=== PATIENT | male | born 1970 | race Caucasian/White ===

== ENCOUNTER → 2020-10-23 | Outpatient (CLI) | payer BC ==
[~2020-10-23] MED LIST: AMOXICILLIN 8751 TAB PO; CARTIA XT240 MG PO; COREG 25MG25 MG/TAB PO; LOTENSIN20 MG PO; NEURONTIN100 MG/CAP PO; NORCO 325 MG-51 TAB PO; ROXICODONE 55 MG/TAB PO; TYLENOL 325MG325 MG PO; ULTRAM 50MG TAB50 MG PO; Work Release; XANAX 1MG1 MG PO
[2020-10-23 14:49] LABS: BASO % 0.3 % (0.0-2.0); EOS # 0.3 (0.0-0.7); EOS % 3.2 % (0-4.0); GRAN # 6.4 (1.4-6.5); GRAN % 68.3 % (42.2-75.2); HEMATOCRIT 46.7 % (42.0-52.0); HEMOGLOBIN 15.4 g/dl (13.5-18.0); LYMPH % 21.7 % (20.0-51.0); MEAN CELL VOLUME 90 fl (80.0-100.0); MEAN CORPUSCULAR HEMOGLOBIN 30 pg (27.0-31.0); MEAN CORPUSCULAR HGB CONC 33 g/dl (33.0-37.0); MEAN PLATELET VOLUME 8.8 fl (7.4-10.4); MONO # 0.6 (0.1-0.6); MONO % 6.2 % (1.7-9.3); PLATELET COUNT 279 K/mm3 (130-400); REDCELL DISTRIBUTION WIDTH-CV 13.7 % (11.5-14.5)
== END ==
LOC: COL.LAB 13:48
PROVIDERS: Physician Assistant
DX: K57.92 Diverticulitis of intestine, part unspecified, without perforation or abscess without bleeding (principal)

== ENCOUNTER 2020-11-09 22:29 | Emergency (ER) | payer BC ==
[~2020-11-09] VITALS: Ht 177.8 cm; Wt 118.2 kg
[2020-11-09 23:08] LABS: BASO % 0.3 % (0.0-2.0); EOS # 0.3 (0.0-0.7); EOS % 2.9 % (0-4.0); GRAN # 7.4 (1.4-6.5); HEMATOCRIT 43.8 % (42.0-52.0); LYMPH % 18.7 % (20.0-51.0); MEAN CELL VOLUME 87 fl (80.0-100.0); MEAN CORPUSCULAR HEMOGLOBIN 30 pg (27.0-31.0); MEAN CORPUSCULAR HGB CONC 34 g/dl (33.0-37.0); MONO # 0.8 (0.1-0.6); MONO % 7.8 % (1.7-9.3); PLATELET COUNT 266 K/mm3 (130-400); RED BLOOD COUNT 5.02 M/mm3 (4.20-5.60)
[2020-11-09 23:18] LABS: ALBUMIN 4.5 gm/dL (3.5-5.0); BILIRUBIN,TOTAL 0.5 mg/dL (0.0-1.0); CREATININE, serum 1.14 (0.66-1.25); POTASSIUM 3.8 mmol/L (3.4-5.0); TOTAL PROTEIN 7.8 gm/dL (6.4-8.2)
[2020-11-09 23:21] LABS: MUCOUS Present /lpf; PH 7 (5-8); SQUAMOUS EPITHELIAL 0-2 /hpf; URINE APPEARANCE Clear; URINE BACTERIA None Seen /hpf; URINE BILIRUBIN Negative (NEGATIVE); URINE BLOOD Negative (NEGATIVE); URINE COLOR Yellow; URINE GLUCOSE Negative (NEGATIVE); URINE KETONE Negative (NEGATIVE); URINE LEUKOCYTE ESTERASE Negative (NEGATIVE); URINE NITRATE Negative (NEGATIVE); URINE PROTEIN(semi-quant) Negative (NEGATIVE); URINE RBC 0-2 /hpf; URINE UROBILINOGEN Negative (NEGATIVE); URINE WBC 0-2 /hpf
[2020-11-09 23:35] LABS: COLLECTION METHOD CLEAN CATCH
[2020-11-10] MEDS ORDERED: AMOXICILLIN 8751 TAB PO (00:53)
[2020-11-10 01:30] VITALS: BP 167/118; PULSE 96; TEMP 97.5
[2021-01-26] MEDS ORDERED: ROXICODONE 55 MG/TAB PO (12:50)
== END 2020-11-10 01:30 | disposition home or self-care (01) ==
LOC: COL.ER 22:29
PROVIDERS: Emergency Medicine
DX: K57.32 Diverticulitis of large intestine without perforation or abscess without bleeding (principal); I10 Essential (primary) hypertension
CPT/HCPCS: J2270; J2405; J7030; Q9967

== ENCOUNTER 2020-11-23 11:28 | Observation (INO) | payer BC ==
[~2020-11-23] VITALS: Ht 177.8 cm; Wt 129.0 kg
[~2020-11-23 11:28] MED LIST changes: -CARTIA XT240 MG PO; -COREG 25MG25 MG/TAB PO; -LOTENSIN20 MG PO; -NEURONTIN100 MG/CAP PO; -NORCO 325 MG-51 TAB PO; -ROXICODONE 55 MG/TAB PO; -TYLENOL 325MG325 MG PO; -ULTRAM 50MG TAB50 MG PO; -Work Release; -XANAX 1MG1 MG PO
[2020-11-23 12:58] LABS: BASO % 0.3 % (0.0-2.0); EOS # 0.1 (0.0-0.7); EOS % 1.4 % (0-4.0); GRAN # 7.1 (1.4-6.5); GRAN % 75.6 % (42.2-75.2); HEMATOCRIT 40.4 % (42.0-52.0); HEMOGLOBIN 14.2 g/dl (13.5-18.0); LYMPH # 1.5 (1.2-3.4); LYMPH % 15.8 % (20.0-51.0); MEAN CELL VOLUME 89 fl (80.0-100.0); MEAN CORPUSCULAR HEMOGLOBIN 31 pg (27.0-31.0); MEAN CORPUSCULAR HGB CONC 35 g/dl (33.0-37.0); MEAN PLATELET VOLUME 8.9 fl (7.4-10.4); MONO # 0.6 (0.1-0.6); MONO % 6.7 % (1.7-9.3); PLATELET COUNT 213 K/mm3 (130-400); RED BLOOD COUNT 4.53 M/mm3 (4.20-5.60); REDCELL DISTRIBUTION WIDTH-CV 14.1 % (11.5-14.5)
[2020-11-23] MEDS ORDERED: COREG 25MG25 MG/TAB PO (13:02)
[2020-11-23] MEDS ORDERED: CARTIA XT240 MG PO (13:02)
[2020-11-23] MEDS ORDERED: LOTENSIN20 MG PO (13:03)
[2020-11-23] MEDS ORDERED: XANAX 1MG1 MG PO (13:04)
[2020-11-23 13:10] LABS: BILIRUBIN,TOTAL 0.6 mg/dL (0.0-1.0); CALCIUM 9.1 mg/dL (8.4-10.2); CREATININE, serum 1.05 (0.66-1.25); POTASSIUM 3.8 mmol/L (3.4-5.0); TOTAL PROTEIN 7.2 gm/dL (6.4-8.2)
[2020-11-23 17:01] VITALS: BP 141/82; PULSE 79; TEMP 97.9
[2020-11-23] MEDS ORDERED: NORCO 325 MG-51 TAB PO (17:59)
[2020-11-23] MEDS ORDERED: ULTRAM 50MG TAB50 MG PO (18:00)
[2020-11-23] MEDS ORDERED: AMOXICILLIN 8751 TAB PO (18:01)
[2020-11-23] MEDS ORDERED: Work Release (18:09)
[2021-01-26] MEDS ORDERED: ROXICODONE 55 MG/TAB PO (12:50)
== END 2020-11-23 18:30 | disposition home or self-care (01) ==
LOC: SURG 11:28
PROVIDERS: ADMIT Surgery
DX: K57.32 Diverticulitis of large intestine without perforation or abscess without bleeding (principal); I10 Essential (primary) hypertension; Z79.899 Other long term (current) drug therapy; Z85.828 Personal history of other malignant neoplasm of skin
CPT/HCPCS: A9284; G0378; J2543; J7120; Q9967

== ENCOUNTER 2021-01-02 09:23 | Inpatient (IN) | payer BC ==
[~2021-01-02] VITALS: Ht 177.8 cm; Wt 129.0 kg
[~2021-01-02 09:23] MED LIST changes: +CARTIA XT240 MG PO; +COREG 25MG25 MG/TAB PO; +LOTENSIN20 MG PO; +NORCO 325 MG-51 TAB PO; +ULTRAM 50MG TAB50 MG PO; +Work Release; +XANAX 1MG1 MG PO
[2021-01-09] VITALS (11 sets, daily range): BP systolic 119–152; BP diastolic 64–116; PULSE 78–84; TEMP 97.6–98
--- NOTE | 2021-01-09 11:45 | NUR ---
The patient ambualted back to [facility] independently using a steady gait and appeared to tolerate the activity well. Vital signs obtained. Consent signed. 20G IV started in right hand on fourth attempt, LR Infusing without difficulty. Blood obtained from 1st IV attempt for labs as ordered. Assessment completed. brought back to see the patient before he was taken over to the recovery room to have a nerve block placed prior to OR. The patient's belongings were taken to the recovery room and will be transferred up with the patient to the 3rd floor post operatively.
[2021-01-09 11:49] LABS: HEMATOCRIT 46.9 % (42.0-52.0); MEAN CELL VOLUME 90 fl (80.0-100.0); MEAN CORPUSCULAR HEMOGLOBIN 31 pg (27.0-31.0); MEAN CORPUSCULAR HGB CONC 34 g/dl (33.0-37.0); PLATELET COUNT 247 K/mm3 (130-400); RED BLOOD COUNT 5.24 M/mm3 (4.20-5.60); REDCELL DISTRIBUTION WIDTH-CV 13.5 % (11.5-14.5)
[2021-01-09 12:55] LABS: ALBUMIN 4.2 gm/dL (3.5-5.0); CALCIUM 9.1 mg/dL (8.4-10.2); CREATININE, serum 1.08 (0.66-1.25); PHOSPHOROUS 3.6 mg/dL (2.5-4.5); POTASSIUM 4.2 mmol/L (3.4-5.0)
--- NOTE | 2021-01-09 19:00 | NUR ---
Patient arrived to the floor at 1740. Patient is alert and oriented. Denies nausea. Stated his pain is starting to increase, ultram given for pain. Lapsites intact without drainage. Camacho secured to leg, urine yellow and clear. Discussed Diet ordered for him. Explained ERAS protocol. Oriented patient and to room. No other changes at this time. Call light within reach.
--- NOTE | 2021-01-09 20:00 | NUR ---
PATIENT IS A&O. VSS. PATIENT C/O ABD PAIN STATING "IT HURTS TO TAKE A DEEP BREATH". PATIENT DISCRIBING GAS PAIN. REPORTS HE IS NOT PASSING GAS BUT HAS BELCHED A COUPLE TIMES. NURSING EDUCATED PATIENT ABOUT ERAS, IMPORTANCE OF WALKING, AND OFFERED A K-PAD. PATIENT GIVEN SCHEDULED TYLENOL, GABAPENTIN & IV TORADOL. ABD IS DISTENDED, SOFT AND WITH POSITIVE BOWL SOUNDS. ABD LAP SITES X5 ARE CD&I. ABD TRANSVERSE INCISION IS CD&I WITH GAUZE. NANCE TO DD WITH MOD AMOUNTS OF CLEAR YELLOW URINE NOTED. IV FLUIDS INFUSING VIA PUMP INTO RIGHT HAND IV. RIGHT HAND IV TO INT. NO C/O N/V. TOLERATING CLEARS. HEAD TO TOE ASSESSMENT COMPLETE. AT BEDSIDE. CALL LIGHT IN REACH.
--- NOTE | 2021-01-09 21:35 | NUR ---
PATIENT REPORTS PAIN IS A LITTLE BETTER AFTER SCHEDULED TYLENOL, NEURONTIN & IV TORADOL. PATIENT REQUESTING SOMETHING ELSE FOR PAIN. GAVE PRN ROXICODONE, ONE TAB. PATIENT REPORTS HE HAS TAKEN OXYCODONE IN THE PAST FOR HIS BACK AND IT WORKED FOR HIM. WILL MONITOR.
--- NOTE | 2021-01-09 22:15 | NUR ---
PATIENT NOW AMBULATING IN HALLS AND TOLERATING ACTIVITY WELL. PAIN IS CURRENTLY MANAGED. PATIENT HEADED BACK TO ROOM TO GET READY FOR BED. CALL LIGHT IN REACH.
[2021-01-10 04:18] VITALS: BP 110/63; PULSE 68; TEMP 98
[2021-01-10 06:53] LABS: BASO % 0.1 % (0.0-2.0); GRAN % 89.5 % (42.2-75.2); HEMATOCRIT 43.1 % (42.0-52.0); HEMOGLOBIN 14.7 g/dl (13.5-18.0); LYMPH % 7.5 % (20.0-51.0); MEAN CELL VOLUME 91 fl (80.0-100.0); MEAN CORPUSCULAR HEMOGLOBIN 31 pg (27.0-31.0); MEAN CORPUSCULAR HGB CONC 34 g/dl (33.0-37.0); MEAN PLATELET VOLUME 10.1 fl (7.4-10.4); MONO # 0.3 (0.1-0.6); MONO % 2.5 % (1.7-9.3); PLATELET COUNT 208 K/mm3 (130-400); RED BLOOD COUNT 4.74 M/mm3 (4.20-5.60); REDCELL DISTRIBUTION WIDTH-CV 13.2 % (11.5-14.5)
[2021-01-10 07:07] LABS: CALCIUM 8.7 mg/dL (8.4-10.2); CREATININE, serum 1.07 (0.66-1.25); MAGNESIUM 1.9 mg/dL (1.6-2.3); PHOSPHOROUS 3.2 mg/dL (2.5-4.5); POTASSIUM 4.1 mmol/L (3.4-5.0)
[2021-01-10 08:00] VITALS: BP 141/79; PULSE 82; TEMP 97.8
[2021-01-10 11:21] VITALS: BP 153/86; PULSE 85; TEMP 98.3
--- NOTE | 2021-01-10 11:25 | NUR ---
First visit from the siderographer. No needs right now.
[2021-01-10 16:00] VITALS: BP 131/77; PULSE 76; TEMP 98.2
--- NOTE | 2021-01-10 16:24 | NUR ---
Specialty Molder met with the patient to complete intake. The patient lives in [place] with his Tiff. The patient denies DME use and is independent. The patient's PCP is Dr. Smith and patient receives medications from [facility] with no difficulties. The patient does not have advanced directives and is not interested in DPOA-HC form at this time. The patient plans to return home with Tiff. *Discharge disposition: Home with spouse*
--- NOTE | 2021-01-10 18:00 | NUR ---
Patient has been doing well today. He has been up walking several times in the hallways. He had two dark red bowel movements today, the were liquid. No clots noted. Valente catheter secured to leg, patient has some irritation from the valente and wanted to have it discontinued. Spoke with Dr Spaulding, he said not until POD#3. Patient is tolerating low fiber diet well. He stated having some increased pain since he started having bowel movements. No other changes at this time. Call light within reach.
[2021-01-10 19:50] VITALS: BP 152/81; PULSE 88; TEMP 98.5
--- NOTE | 2021-01-10 20:25 | NUR ---
Pt. sitting up in bed at this time. Pt. is A&OX3, assessment complete. INT to rt. wrist. IV to rt. hand with IV fluids infusing. Pt. reports abd. pain at a 2 on pain scale at this time. Pt. denies further needs, call light within reach.
[2021-01-10 23:29] VITALS: BP 156/81; PULSE 79; TEMP 98.3
[2021-01-11 03:35] VITALS: BP 136/76; PULSE 71; TEMP 97.5
[2021-01-11 06:43] LABS: BASO % 0.1 % (0.0-2.0); GRAN # 9.1 (1.4-6.5); GRAN % 80.3 % (42.2-75.2); HEMATOCRIT 37.9 % (42.0-52.0); HEMOGLOBIN 12.9 g/dl (13.5-18.0); LYMPH # 1.5 (1.2-3.4); LYMPH % 12.9 % (20.0-51.0); MEAN CELL VOLUME 91 fl (80.0-100.0); MEAN CORPUSCULAR HEMOGLOBIN 31 pg (27.0-31.0); MEAN CORPUSCULAR HGB CONC 34 g/dl (33.0-37.0); MEAN PLATELET VOLUME 9.4 fl (7.4-10.4); MONO # 0.7 (0.1-0.6); MONO % 6.3 % (1.7-9.3); PLATELET COUNT 234 K/mm3 (130-400); RED BLOOD COUNT 4.16 M/mm3 (4.20-5.60); REDCELL DISTRIBUTION WIDTH-CV 13.2 % (11.5-14.5)
[2021-01-11 06:57] VITALS: BP 149/81; PULSE 68; TEMP 98.3
[2021-01-11 07:00] LABS: ALBUMIN 3.4 gm/dL (3.5-5.0); BILIRUBIN,TOTAL 0.2 mg/dL (0.0-1.0); CALCIUM 8.5 mg/dL (8.4-10.2); CREATININE, serum 1.06 (0.66-1.25); TOTAL PROTEIN 6.3 gm/dL (6.4-8.2)
--- NOTE | 2021-01-11 09:44 | NUR ---
Assessment completed, alert/oriented, vital signs stable, reports pain is mild and being controlled with scheduled Toradol, incision sites look good and are CHRISTIANO/ no redness or drainage, patient BS + throughout and has had multiple bowel movements/ dark brown liquid, tolerating PO intake without difficulties, patient has valente cath but said we can go ahead and remove it and jsut monitor closeley for retention / Cath removed at this time, heart RRR/distal pulses are palpable, lungs CTA/ no resp.difficulty, encouraged use of IS while awake and patient verbalized understanding and demonstrated proper use, he is up ambulating independently and doing quite well, he denies other needs or concerns at this time, Will continue to monitor
--- NOTE | 2021-01-11 10:09 | NUR ---
Initial visit; Patient thanked Cattle Farmer for looking in on him and offering prayer and God's blessings. Patient thanked Cattle Farmer for keeping him in her prayers.
[2021-01-11 10:56] VITALS: BP 149/98; PULSE 86; TEMP 98.5
[2021-01-11 16:13] VITALS: BP 161/100; PULSE 70; TEMP 98
--- NOTE | 2021-01-11 18:32 | NUR ---
Patient continues to have loose dark / bloody stools, hemaglobin stable at 12.9 / recheck labs in a.m and continue to monitor
[2021-01-11 19:14] VITALS: BP 151/85; PULSE 82; TEMP 98.5
[2021-01-11 23:51] VITALS: BP 159/95; PULSE 75; TEMP 99.3
[2021-01-12 04:02] VITALS: BP 166/96; PULSE 75; TEMP 97.9
--- NOTE | 2021-01-12 05:28 | NUR ---
Awake, alert, oriented x 4, able to verbalize all needs, denies need for PRN pain meds, ambulating in hallways throughout night, denies issues with urination, appetite good- tolerating diet, abdomen surgical incisions w/o issue, will continue to monitor.
[2021-01-12 06:55] LABS: BASO % 0.3 % (0.0-2.0); EOS # 0.1 (0.0-0.7); EOS % 1.2 % (0-4.0); GRAN # 3.8 (1.4-6.5); GRAN % 54.1 % (42.2-75.2); HEMATOCRIT 34.1 % (42.0-52.0); HEMOGLOBIN 11.4 g/dl (13.5-18.0); LYMPH # 2.6 (1.2-3.4); LYMPH % 37.2 % (20.0-51.0); MEAN CELL VOLUME 91 fl (80.0-100.0); MEAN CORPUSCULAR HEMOGLOBIN 30 pg (27.0-31.0); MEAN CORPUSCULAR HGB CONC 33 g/dl (33.0-37.0); MEAN PLATELET VOLUME 9.3 fl (7.4-10.4); MONO # 0.5 (0.1-0.6); MONO % 6.9 % (1.7-9.3); PLATELET COUNT 234 K/mm3 (130-400); RED BLOOD COUNT 3.76 M/mm3 (4.20-5.60); REDCELL DISTRIBUTION WIDTH-CV 13.4 % (11.5-14.5)
[2021-01-12 07:05] LABS: ALBUMIN 3.2 gm/dL (3.5-5.0); BILIRUBIN,TOTAL 0.2 mg/dL (0.0-1.0); CALCIUM 8.4 mg/dL (8.4-10.2); CREATININE, serum 1.01 (0.66-1.25); POTASSIUM 3.6 mmol/L (3.4-5.0); TOTAL PROTEIN 5.9 gm/dL (6.4-8.2)
--- NOTE | 2021-01-12 08:00 | NUR ---
Patient in bed resting. Alert and oriented x 3. Lap sites x 5 and low transverse site with edges well approximated. Denies pain at this time. Patient up indepently, ambulating in halls. Denies further needs at this time.
--- NOTE | 2021-01-12 08:00 | NUR ---
Patient in bed resting. Alert and oriented x 3. Assessment complete. Denies pain at this time. Patient up ambulating independently in halls. Lap sites x5 and low transverse site with edges well approximated. INT to right hand without complications. Denies further needs at this time. Will report off to shift production associate.
[2021-01-12 08:42] VITALS: BP 155/97; PULSE 89; TEMP 98.3
[2021-01-12] MEDS ORDERED: TYLENOL 325MG325 MG PO (09:18)
[2021-01-12] MEDS ORDERED: ROXICODONE 55 MG/TAB PO (09:18)
[2021-01-12] MEDS ORDERED: ULTRAM 50MG TAB50 MG PO (09:18)
[2021-01-12] MEDS ORDERED: NEURONTIN100 MG/CAP PO (09:19)
[2021-01-12 09:35] VITALS: BP 157/58
--- NOTE | 2021-01-12 10:30 | NUR ---
Discharge education provided to patient. Educated on when to call provider and follow up appointment. Patient educated on signs and symptoms of infection. Educated on all new medications and medication safety. Denies further needs at this time. INT to right hand discontinued, catheter tip intact. Patient ambulated out with surgical staff.
[2021-01-26] MEDS ORDERED: ROXICODONE 55 MG/TAB PO (12:50)
== END 2021-01-12 10:30 | disposition home or self-care (01) | DRG 331 ==
LOC: INPTSU 01-09 10:35 → SURG 01-09 10:35
PROVIDERS: ADMIT Surgery
PROC: 8E0W0CZ Robotic Assisted Procedure of Trunk Region, Open Approach (ICD-10-PCS; 2021-01-09)
PROC: 0DJD8ZZ Inspection of Lower Intestinal Tract, Via Natural or Artificial Opening Endoscopic (ICD-10-PCS; 2021-01-09)
PROC: 3E0K8GC Introduction of Other Therapeutic Substance into Genitourinary Tract, Via Natural or Artificial Opening Endoscopic (ICD-10-PCS; 2021-01-09)
PROC: 0DTN0ZZ Resection of Sigmoid Colon, Open Approach (ICD-10-PCS; principal; 2021-01-09 12:30)
DX: K57.32 Diverticulitis of large intestine without perforation or abscess without bleeding (principal)
CPT/HCPCS: A4314; A9284; J0330; J0690; J1100; J1650; J1885; J2250; J2405; J2704; J2795; J3010; J7120

== ENCOUNTER → 2021-10-29 | Outpatient (CLI) | payer BC ==
[~2021-10-29] MED LIST changes: +NEURONTIN100 MG/CAP PO; +ROXICODONE 55 MG/TAB PO; +TYLENOL 325MG325 MG PO
== END ==
LOC: COL.RAD 10-23 08:00
DX: K44.9 Diaphragmatic hernia without obstruction or gangrene (principal)

== ENCOUNTER → 2022-12-12 | Outpatient (CLI) | payer BC ==
[~2022-12-12] MED LIST changes: +PERCOCET 325 MG1 TA2 PO
== END ==
LOC: COL.RAD 11:49
DX: Z98.1 Arthrodesis status (principal); M41.57 Other secondary scoliosis, lumbosacral region; M48.061 Spinal stenosis, lumbar region without neurogenic claudication; M51.36 Other intervertebral disc degeneration, lumbar region; M54.16 Radiculopathy, lumbar region; M54.9 Dorsalgia, unspecified; M48.062 Spinal stenosis, lumbar region with neurogenic claudication

== ENCOUNTER 2023-08-19 22:56 | Emergency (ER) | payer OTHER ==
[~2023-08-19] VITALS: Ht 177.8 cm; Wt 102.3 kg
[2023-08-19] MEDS ORDERED: Ketorolac 30 MG/ML VIAL IM ONE (23:15)
[2023-08-19] MEDS ORDERED: oxyCODONE/Acetaminophen 5-325 MG TAB PO ONE (23:15)
[2023-08-20 00:36] VITALS: BP 151/95; PULSE 91; TEMP 98.2
[2023-08-20] MEDS ORDERED: NORCO 325 MG-51 TAB PO (00:40)
[2023-08-20] MEDS ORDERED: oxyCODONE/Acetaminophen 5-325 MG TAB PO ONE (00:45)
== END 2023-08-20 00:36 | disposition home or self-care (01) ==
LOC: COL.ER 22:56
DX: S33.5XXA Sprain of ligaments of lumbar spine, initial encounter (principal); Z98.890 Other specified postprocedural states; V53.5XXA Driver of pick-up truck or van injured in collision with car, pick-up truck or van in traffic accident, initial encounter; Y92.410 Unspecified street and highway as the place of occurrence of the external cause
CPT/HCPCS: J1885